=== PATIENT | female | born 1975 | race Caucasian/White ===

== ENCOUNTER 2022-01-18 15:19 | Emergency (ER) | payer OTHER, SELFPAY ==
[2022-01-18 16:11] VITALS: BP 122/79; PULSE 85; RESP 16; TEMP 36.8; O2SAT 96; BMI 36.0
--- NOTE | 2022-01-18 16:24 | HMH.EDUTC ---
[facility] [place] Clinical Impression: Urticaria Disposition: Home, Self-Care Condition on Discharge: Good Instructions: DI for Hives, Hives, Prednisone Additional Instructions: Over the counter Benadryl may help with itching Over the counter Pepcid daily may help with allergic reactions Start oral steriods tomorrow Oatmeal baths may help with itching and skin irritation Follow up with Family Doctor if no improvement or any worsening of symptoms Straight to ER if any life threatening symptoms Prescriptions: predniSONE [Prednisone 20mg Tab] 20 mg PO BID 5 Days #10 tab Transmission Status: Pending to [place] [id number] Referrals: Provider,Referral, MD [Primary Care Provider] - As needed Time of Disposition: 17:11 Medical Decision Making - Enrique Inquiry Pt receiving controlled substance: No Enrique was queried for this patient: No Vital Signs: 01/18/22 16:11 Temperature 98.3 F Temperature Source Oral Pulse Rate [Left] 85 Respiratory Rate 16 Blood Pressure [Right Arm] 122/79 Blood Pressure Mean [Right Arm] 93 02 Sat by Pulse Oximetry 96 - Lab Data Lab Results 01/18/22 16:33: Strep Scn [facility] Negative Orders (Tests/Meds): ED MEDICATIONS Discontinued Medications Generic Name Dose Route Start Last Admin Trade Name Freq PRN Reason Stop Dose Admin Famotidine 20 mg 01/18/22 16:35 01/18/22 16:57 Famotidine 20mg Tablet PO 01/18/22 16:36 20 mg ONCE ONE Administration Methylprednisolone Sodium Succinate 125 mg 01/18/22 16:35 01/18/22 16:57 Methylprednisolone Sod Succ 125mg Vial IM 01/18/22 16:36 125 mg ONCE ONE Administration ORDERS Category Date Time Status Strep Screen Confirmation Stat Micro 01/18/22 16:33 Received Medical Decision Narrative: Rash much improved after injection [facility] [place]PI - General Stated complaint: Rash Time Seen by Provider: 01/18/22 16:24 Mode of Arrival: Ambulatory Source of Information: Patient Limitations: No Limitations Description of Symptoms (Recalled from Triage Doc. by RN): patient comes in with complaints of rash all over body. symptoms began last night. HEENT Symptoms (Recalled from RN notes): No Resp Symptoms (Recalled from RN notes): No Skin Symptoms (Recalled from RN notes): Yes MS Symptoms (Recalled from RN notes): No Functional Status (Recalled from RN notes): n/a - History of Present Illness Provider Complaint: Patient states that she is not sure if she got into something she may be having a reaction to States that she started breaking out in rash all over her neck, chest, back and arms now it is on her face and she has been itching all over States that she thinks she is having an allergic reaction to something States that she took Claritan earlier today - Related Data Previous Rx's Medication Instructions Recorded predniSONE [Prednisone 20mg 20 mg PO BID 5 Days #10 tab 01/18/22 Tab] Allergies Allergy/AdvReac Type Severity Reaction Status Date / Time bupropion [From Wellbutrin] Allergy Verified 01/18/22 16:14 celecoxib [From Celebrex] Allergy Verified 01/18/22 16:14 gabapentin [From Neurontin] Allergy Verified 01/18/22 16:14 - Worker's Comp Is this a Worker's Comp case?: No [facility] History - Hepatitis A Screen Attestation statement:: This patient has been screened for Hepatitis A risk factors. I have reviewed the patient's past medical history: Yes ROS Obtained: Yes All systems reviewed & no additional complaints, Yes Systems reviewed as appropriate & no additional complaints - Constitutional Constitutional: Reports system reviewed and no additional complaints, except as docu - ENT Ears, Nose, Mouth, and Throat: Reports system reviewed and no additional complaints, except as docu - Cardiovascular Cardiovascular: Reports system reviewed and no additional complaints, except as docu - Respiratory Respiratory: Reports system reviewed and no additional complaints, exce
[2022-01-18 16:34] LABS: UTC Strep Screen (Rapid) Negative (Negative)
[2022-01-18 17:13] VITALS: BP 122/79; PULSE 85; RESP 16; TEMP 36.8
== END 2022-01-18 17:18 | disposition home or self-care (01) ==
PROVIDERS: Emergency Provider Nurse Practitioner
DX: L50.9 Urticaria, unspecified (principal)
CPT/HCPCS: 87880; 96372; 99212; G0463